=== PATIENT | male | born 1995 ===

== ENCOUNTER 2019-07-05 13:06 | Emergency (ER) | payer MEDICAID ==
[~2019-07-05] VITALS: Ht 167.6 cm; Wt 67.6 kg
[2019-07-05 13:30] VITALS: BP 120/65; Ht 167.6 cm; Wt 67.6 kg
== END 2019-07-05 15:49 | disposition home or self-care (01) ==
LOC: ED 13:06
DX: H66.91 Otitis media, unspecified, right ear (principal); J40 Bronchitis, not specified as acute or chronic